=== PATIENT | female | born 1985 | race Two or more races ===

== ENCOUNTER → 2025-02-03 | Day surgery (SDC) | payer MEDICAID ==
[2025-01-27 12:21] LABS: Hematocrit 44.3 % (36.0-46.0); Hemoglobin 15.1 g/dL (12.2-16.2); Mean Corpuscular Hemoglobin 29.4 pg (28.0-32.0); Mean Corpuscular Volume 86.5 fL (80.0-100.0); Nucleated Red Blood Cells % 0.0 %
[2025-01-27 12:23] LABS: Urine Protein, UAD Negative (Negative)
[2025-01-27 12:35] LABS: INR 0.97 (0.9-1.15); Partial Thromboplastin Time 26.6 SEC (24.5-34.5); Prothrombin Time 10.3 sec (9.3-11.8)
[2025-01-27 13:07] LABS: Alanine Aminotransferase 22 U/L (7-40); Albumin 4.7 g/dL (3.2-4.8); Alkaline Phosphatase 83 U/L (46-116); Anion Gap 9 (5-15); BUN/Creatinine Ratio 13.8 (10.0-20.0); Blood Urea Nitrogen 11 mg/dL (9-23); Calcium 9.8 mg/dL (8.7-10.4); Carbon Dioxide 25 mmol/L (20-31); Chloride 105 mmol/L (98-107); Glucose 93 mg/dL (74-106); Potassium 4.3 mmol/L (3.5-5.1); Sodium 139 mmol/L (136-145); Total Protein 7.7 g/dL (5.7-8.2)
[2025-01-27 13:08] LABS: Bilirubin, Total 0.3 mg/dL (0.2-1.0)
[~2025-02-03] VITALS: Ht 157.5 cm; Wt 71.7 kg
[~2025-02-03] MED LIST: CHOL20007 PO; COEN400C8 OR; FOLITAB22 PO; IBUP-1453 PO; LEVO-848 PO; PROPOFOL 10 MG/ML 20 ML IV ONE; fentaNYL CITRATE 100 MCG/2 ML VL ONE
--- NOTE | 2025-02-03 10:21 | DVHHP2 ---
GI H&P Pre-Op Assessment Date: 02/03/25 Chief complaint: Nausea, vomiting, early satiety, lower abdominal pain HPI: per clinic note Past medical history: per clinic note Past surgical history: per clinic note Family history: per clinic note Physical exam: General: NAD, AAOX3 HEENT: PERRL, no scleral icterus, normal hearing, gums without lesions or bleeding, oropharynx clear without erythema or exudate. Neck: Supple without enlargement of the thyroid, or lymphadenopathy. Chest: Normal size and shape, no tenderness, lung lambert clear to auscultation and percussion, nonlabored breathing. Heart: RRR, no murmur Abdomen: non-distended, no tenderness to palpation, +BS, no hepatosplenomegaly Extremities: no edema Neurological: CN II-XII intact, sensation intact in all extremities, 5+ strength in all extremities Skin: No rashes, No jaundice Assessment: - Nausea, vomiting, early satiety, lower abdominal pain Plan: - EGD - Colonoscopy - Risks (bleeding, infection, perforation, reaction to sedation medications and cardiopulmonary arrest) and benefit of the procedure were explained to patient. Patient agrees to undergo the procedure. AMANDA ARMSTRONG MD Feb 03, 2025 10:21
--- NOTE | 2025-02-03 10:44 | DVHOP2 ---
Operative Report DATE OF OPERATION: 02/03/25 PROCEDURE: Upper Endoscopy. PREOPERATIVE INDICATION: The patient is a 39 -year-old female undergoing endoscopy for nausea, vomiting, early satiety. POSTOPERATIVE DIAGNOSES: 1. Moderate gastritis PROCEDURE PERFORMED BY: Aron Sutton SCOPE: Olympus videoendoscope. ASA CLASS: 2 PREOPERATIVE MEDICATIONS: MAC with Dr Ritter PROCEDURE IN DETAIL: After obtaining an informed consent, the patient was placed on left lateral decubitus position. The patient was then sedated with the above medications. A bite block was placed between her teeth. The endoscope was then passed through the oropharynx, into the esophagus, and through the stomach and pylorus up to the second and third part of the duodenum. The duodenum was normal appearance. There was moderate gastritis. Gastric biopsies were obtained using cold forceps. The GE junction was normal in appearance at 35 cm. The endoscope was then withdrawn. The patient tolerated the procedure well without difficulty. COMPLICATIONS : None SPECIMENS: Gastric biopsies DISPOSITION: D/C to home PLAN: 1. Await for biopsy result ARON SUTTON MD Feb 03, 2025 10:44
[2025-02-03 10:45] VITALS: TEMP 98.7; O2SAT 99
--- NOTE | 2025-02-03 10:45 | DVHOP2 ---
Operative Report DATE OF OPERATION: 02/03/25 PROCEDURE: Colonoscopy. PREOPERATIVE INDICATION: The patient is a 39 -year-old female undergoing colonoscopy for lower abdominal pain. POSTOPERATIVE DIAGNOSES: 1. Normal colonoscopy PROCEDURE PERFORMED BY: Aron Sutton M.D. SCOPE: Olympus videocolonoscope. ASA CLASS: 2 PREOPERATIVE MEDICATIONS: MAC with Dr Ritter PROCEDURE IN DETAIL: After obtaining an informed consent, the patient was placed on left lateral decubitus position. She was then sedated with the above medications. A rectal examination was performed that was normal. The colo noscope was then passed through the anus into the rectosigmoid and through the descending, transverse, and ascending colon up to the cecum with visualization of the appendiceal orifice, base of the cecum and the ileocecal valve. No mass or polyp was observed. The colonoscope was then withdrawn. The patient tolerated the procedure well without difficulty. WITHDRAWAL TIME: 6 minutes QUALITY OF THE PREP: Letcher Bowel Prep score: 7 COMPLICATIONS : None SPECIMENS: None DISPOSITION: D/C to home PLAN: 1. Follow up in GI clinic. ARON SUTTON MD Feb 03, 2025 10:45
--- NOTE | 2025-02-03 10:46 | DVHDS2 ---
Physician Discharge Progress N Final Diagnosis: Moderate gastritis Normal colonoscopy Operations or Procedures: Operations or Procedures EGD with cold biopsies Colonoscopy Condition on Discharge: Critical Disposition: Home Discharge Instructions: Diet: Regular Activity: No Restrictions, As Tolerated Medications: Resume with previous home medication Follow Up Care: Discharge Statement: "Patient was advised to return to the ER or call 911 if any headaches, dizziness, shortness of breath, chest pain, abdominal pain, bleeding, fevers, or worsening of medical condition. Patient was counseled about treatment plan, medications, possible side effects, patientverbalized understanding. All questions were answered to the best of my ability. This discharge took greater then 30 minutes in planning, reviewing documentation, counseling the patient, and discussing with other team members." AMANDA ARMSTRONG MD Feb 03, 2025 10:46
[2025-02-03 11:15] VITALS: BP 136/76; PULSE 65; RESP 16; O2SAT 99
== END | disposition home or self-care (01) ==
LOC: GI 08:03
PROVIDERS: ATTEND Internal Medicine Gastroenterology
DX: R10.30 Lower abdominal pain, unspecified (principal); K29.50 Unspecified chronic gastritis without bleeding; B96.81 Helicobacter pylori [H. pylori] as the cause of diseases classified elsewhere; R11.2 Nausea with vomiting, unspecified; R68.81 Early satiety; E03.9 Hypothyroidism, unspecified; Z79.890 Hormone replacement therapy; Z79.899 Other long term (current) drug therapy; Z87.442 Personal history of urinary calculi; Z90.49 Acquired absence of other specified parts of digestive tract; Z98.890 Other specified postprocedural states
CPT/HCPCS: 36415; 43239; 45378; 80053; 81001; 84702; 85025; 85610; 85730; 88305; 88342; J2704; J3010; J7030